=== PATIENT | female | born 1980 | race Caucasian/White ===

== ENCOUNTER 2025-06-13 08:19 | Emergency (ER) | payer OTHER ==
[~2025-06-13] VITALS: Ht 170.2 cm; Wt 90.9 kg
[2025-06-13 09:59] LABS: APPEARANCE,URINE CLEAR (CLEAR); GLUCOSE, URINE (UA) NEGATIVE (NEGATIVE); LEUKOCYTE ESTERASE ,URINE NEGATIVE (NEGATIVE); NITRATE,URINE NEGATIVE (NEGATIVE); OCCULT BLOOD,URINE NEGATIVE (NEGATIVE); SPECIFIC GRAVITIY, URINE 1.004 (1.003-1.030)
[2025-06-13 10:01] LABS: SQUAMOUS EPITHELIAL CELL,UR Rare /LPF (None Seen)
[2025-06-13] MEDS: OxyCODONE HCL/ACETAMINOPHEN 5-325 MG TABLET PO ONE (10:13)
[2025-06-13] MEDS: KETOROLAC TROMETHAMINE 60 MG/2 ML VIAL IM ONE (10:14)
[2025-06-13] MEDS ORDERED: IBUP-1492 PO (10:59)
[2025-06-13] MEDS ORDERED: METH-659 PO (11:00)
[2025-06-13 12:40] VITALS: BP 143/81; PULSE 86; RESP 16; TEMP 97.5; O2SAT 99
== END 2025-06-13 12:45 | disposition home or self-care (01) ==
LOC: EMS 08:23
DX: S76.911A Strain of unspecified muscles, fascia and tendons at thigh level, right thigh, initial encounter (principal); S09.90XA Unspecified injury of head, initial encounter; M79.604 Pain in right leg; M25.561 Pain in right knee; W10.9XXA Fall (on) (from) unspecified stairs and steps, initial encounter; Y93.89 Activity, other specified; Y92.89 Other specified places as the place of occurrence of the external cause; Y99.0 Civilian activity done for income or pay
CPT/HCPCS: 99284; 29505; 81001; 84703; 73560; 73590; 73610; 96372; J1885